=== PATIENT | male | born 1980 | race Two or more races ===

== ENCOUNTER 2017-07-20 03:29 | Emergency (ER) | payer MEDICAID, OTHER ==
[~2017-07-20] VITALS: Ht 165.1 cm; Wt 73.0 kg
[2017-07-20 05:08] VITALS: BP 120/69
[2017-07-20] MEDS ORDERED: IBUPROFEN 800 MG TAB PO ONE (07:30)
[2017-07-20] MEDS ORDERED: SILVER SULFADIAZINE 1 % TOPICAL CREAM 50GM TOP ONE (07:30)
== END 2017-07-20 07:33 | disposition home or self-care (01) ==
LOC: EDBD 03:29 → ER 03:29
DX: T22.112A Burn of first degree of left forearm, initial encounter (principal); S50.11XA Contusion of right forearm, initial encounter; V43.52XA Car driver injured in collision with other type car in traffic accident, initial encounter; Y93.89 Activity, other specified; Y92.89 Other specified places as the place of occurrence of the external cause; Y99.8 Other external cause status
CPT/HCPCS: 16000; 73100